=== PATIENT | male | born 1960 | race Caucasian/White ===

== ENCOUNTER 2016-12-26 15:41 | Outpatient (CLI) | payer MEDICARE ==
[2016-12-26 17:52] LABS: #Basophils 0.1 thou/uL (0.0-0.2); #Eosinphils 0.1 thou/uL (0.0-0.7); #Monocytes 0.5 thou/uL (0.11-0.59); #Neutrophils 3.6 thou/uL (1.40-6.50); %Basophils 1.4 % (0.0-1.0); %Eosinophils 1.6 % (0.0-10.0); %Monocytes 7.5 % (0.0-10.0); Hematocrit 40.4 % (42.0-52.0); Mean Platelet Volume 6.9 fL (7.4-10.4); Red Blood Cell (RBC) Count 4.29 mill/uL (4.70-6.10); White Blood Cell (WBC) Count 6.3 thou/uL (4.8-10.8)
[2016-12-26 18:04] LABS: ALT (SGPT) 44 U/L (0-55); AST (SGOT) 43 U/L (5-34); Alkaline Phosphatase 84 U/L (40-150); Anion Gap 18 mmol/L (10-20); BUN (Urea Nitrogen) 18 mg/dL (8.4-25.7); Bilirubin, Total 0.5 mg/dL (0.2-1.2); Calc. Creatinine Clearance 0 mL/min (70-130); Calcium 9.3 mg/dL (7.8-10.44); Carbon Dioxide 25 mmol/L (22-29); Chloride 95 mmol/L (98-107); Estimated GFR-MDRD 58; LDL Cholesterol, Calculated 102 mg/dL
[2016-12-26 19:51] LABS: Hemoglobin A1c 12.2 % (4.0-6.0)
== END 2016-12-26 15:42 ==
LOC: HPCALD 15:41
PROVIDERS: ATTEND Physician Assistant
DX: E11.65 Type 2 diabetes mellitus with hyperglycemia (principal)
CPT/HCPCS: 36415; 80053; 80061; 83036; 85025

== ENCOUNTER 2017-02-23 11:04 | Outpatient (CLI) | payer MEDICARE | END 2017-02-23 11:05 | disposition home or self-care (01) | LOC: HPCALD 11:04 | PROVIDERS: ATTEND Physician Assistant | DX: L03.116 Cellulitis of left lower limb (principal) | CPT/HCPCS: 87070; 87205 ==

== ENCOUNTER 2017-02-23 11:34 | Inpatient (IN) | payer MEDICARE ==
[2017-02-23] MEDS ORDERED: Insulin Regular 300 UNITS/3 ML VIAL ONE (11:49)
[2017-02-23 11:56] LABS: #Basophils 0.1 thou/uL (0.0-0.2); #Lymphocytes 1.2 thou/uL (1.20-3.40); #Monocytes 0.5 thou/uL (0.11-0.59); #Neutrophils 5.6 thou/uL (1.40-6.50); %Basophils 0.9 % (0.0-1.0); %Eosinophils 0.3 % (0.0-10.0); %Lymphocytes 16.4 % (21.0-51.0); %Monocytes 6.4 % (0.0-10.0); Hemoglobin 14.7 g/dL (14.0-18.0); Mean Corpuscular HGB CONC 33.2 g/dL (32.0-36.0); Mean Corpuscular Hemoglobin 31.9 pg (27.0-31.0); Mean Corpuscular Volume 95.9 fl (80.0-94.0); Mean Platelet Volume 9.3 fL (7.4-10.4); Platelet Count 167 thou/uL (130-400); RBC Distribution Width 11.5 % (11.5-14.5); Red Blood Cell (RBC) Count 4.62 mill/uL (4.70-6.10); White Blood Cell (WBC) Count 7.3 thou/uL (4.8-10.8)
[2017-02-23 12:12] LABS: ALT (SGPT) 42 U/L (0-55); AST (SGOT) 36 U/L (5-34); Alkaline Phosphatase 92 U/L (40-150); Anion Gap 17 mmol/L (10-20); BUN (Urea Nitrogen) 16 mg/dL (8.4-25.7); Bilirubin, Total 0.5 mg/dL (0.2-1.2); Calc. Creatinine Clearance 0 mL/min (70-130); Calcium 9.5 mg/dL (7.8-10.44); Carbon Dioxide 29 mmol/L (22-29); Chloride 87 mmol/L (98-107); Estimated GFR-MDRD 62; Globulin 3.8 g/dL (2.4-3.5); Potassium 4.2 mmol/L (3.5-5.1); Protein, Total 7.8 g/dL (6.0-8.3); Sodium 129 mmol/L (136-145)
[2017-02-23 12:14] LABS: Glucose 648 mg/dL (70-105)
[2017-02-23] MEDS ORDERED: Acetaminophen 325 MG TAB PO PRN (14:38)
[2017-02-23] MEDS ORDERED: Insulin NPH/Reg Insulin Hm 300 UNITS/3 ML VIAL SC SCH (14:45)
[2017-02-23] MEDS ORDERED: Dextrose 5% in Water 1,000 ML IV PRN (14:55)
[2017-02-23] MEDS ORDERED: Dextrose 50% Abboject 50 ML SYRINGE IVP PRN (14:56)
[2017-02-23] MEDS ORDERED: METRONIDAZOLE IVPB SCH (15:00)
[2017-02-23] MEDS: Sodium Chloride 0.9% 1,000 ML IV SCH ×2 (15:07→23:08)
[2017-02-23] MEDS: HYDROcodone/Acetaminophen 5/325 mg Tablet PO PRN ×2 (15:08→21:58)
[2017-02-23] MEDS: Vancomycin HCl 1 GM in Sodium Chloride 0.9% 250 ML 250 ML IVPB SCH (17:22)
[2017-02-23] MEDS ORDERED: chlordiazePOXIDE HCl 25 MG CAP PO PRN (17:43)
[2017-02-23] MEDS: Enoxaparin Sodium 30 MG/0.3 ML SYRINGE SC SCH (17:58)
[2017-02-23] MEDS: Nicotine 14 MG PATCH TD SCH (17:58)
[2017-02-23] MEDS: Insulin Regular 300 UNITS/3 ML VIAL SC PRN (21:38)
[2017-02-23] MEDS ORDERED: metroNIDAZOLE 500 MG in Premix Bag 1 BAG IVPB SCH (22:00)
--- NOTE | 2017-02-23 22:01 | RAD ---
CHEST TWO VIEWS 02/23/17 Comparison is made with the 02/09/11 study. The heart is normal in size. The mediastinum shows no widening of shift. The trachea is midline. The lungs are currently clear. There is no infiltrate or effusion noted. No acute bony changes were see n. IMPRESSION: No acute thoracic findings. POS: HOME
--- NOTE | 2017-02-23 22:27 | RAD ---
LEFT FEMUR FOUR VIEWS 02/23/17 There has been an amputation at the level of the mid to distal femur. No area of definite bony destr uction was seen. There is currently no plain film finding of osteomyelitis, however, radiographs are relatively late in showing such change. MRI can often be helpful. IMPRESSION: No acute bony findings. POS: HOME
--- NOTE | 2017-02-24 01:38 | HP ---
CHIEF COMPLAINT: Sore on stump. HISTORY OF PRESENT ILLNESS: Mr. Palma is a 57-year-old male with a history of alcohol abuse, tobacco abuse, longstanding diabetes with peripheral vascular disease, status post left AKA, who apparently ran out of his medications due to financial constraints over a month ago, specifically his insulin, and presented in the ambulatory setting today to see his primary care provider, Lorelei Diaz PA-C, with complaint of 1 week history of redness and sore to the left stump. The patient stated he had been unable to wear his prosthesis due to eroding ulceration. He has therefore been ambulating with crutch assist. Mrs. Diaz recommended the patient be evaluated through the emergency department due to hyperglycemia with a glucose of 586 in the clinic setting to bring down his glucose and IV antibiotics for cellulitis of the stump. The area began draining on the day prior to presentation. He has had no fever, chills, nausea, vomiting. He has had a yellowish crusting around the drainage site. Regarding his diabetes, the patient has a glucometer, but has been unable to test his glucose due to a lack of test strips. The patient apparently does not have prescription drug coverage. PAST MEDICAL HISTORY: 1. Medical noncompliance. 2. Type 2 diabetes, insulin-dependent, peripheral vascular disease, alcohol abuse, marijuana abuse. 3. Hepatitis C. PAST SURGICAL HISTORY: 1. Femoral bypass. 2. AKA, left leg. 3. Hernia repair. 4. Tonsillectomy. FAMILY HISTORY: Father is with heart problems. Mother is with diabetes and high cholesterol. The patient has a daughter. ALLERGIES: PENICILLIN. MEDICATIONS: Previously reported Humulin 70/30, 15 units b.i.d.; Levemir 20 units at bedtime and lisinopril 10 mg q. day, but has been off of medication for at least 4 weeks. SOCIAL HISTORY: The patient drinks one beer per day. Smokes 1 pack of tobacco per day. Smokes marijuana. REVIEW OF SYSTEMS: CONSTITUTIONAL: The patient denies fever, chills, fatigue, weakness. HEENT: Denies vision changes, sore throat, ear pain, runny nose, cough. CARDIOVASCULAR: The patient denies chest pain, palpitations, syncope. RESPIRATORY: The patient denies cough, shortness of breath, hemoptysis. GASTROINTESTINAL: The patient denies nausea, vomiting, diarrhea, constipation, blood in the stool. MUSCULOSKELETAL: The patient denies joint swelling and joint pain, but has had drainage from the left stump as per HPI. GENITOURINARY: Denies dysuria or gross hematuria. HEMATOLOGIC: Denies bleeding or bruising. PSYCHIATRIC: The patient denies history of alcohol withdrawal, depression or anxiety. PHYSICAL EXAMINATION: VITAL SIGNS: Blood pressure 149/89, heart rate 104, respirations 18, temperature 97.9, pain 8/10, 97% on room air. At my exam, temperature 97.7, pulse 84, respirations 20, O2 sat 98% on room air, blood pressure 169/80. GENERAL: Thin male in no acute distress. Alert and oriented x3. HEENT: Pupils are equally round and reactive to light and accommodation. Extraocular muscles are intact. Nares are patent without discharge. Tongue protrudes in midline. NECK: Supple, without lymphadenopathy, thyromegaly or JVD. CARDIOVASCULAR: Regular rate and rhythm, normal S1, S2. No murmurs, clicks, rubs, or gallops. LUNGS: Clear to auscultation with good air entry bilaterally. No wheezing or crackles. No increased work of breathing. GASTROINTESTINAL: Positive bowel sounds in all four quadrants, soft, nontender , nondistended, no masses, guarding, or rebound tenderness. EXTREMITIES: No cyanosis, clubbing or edema to the right lower extremity, the left lower extremity is without edema. There is a left [id number] amputation that is erythematous at the distal aspect with a mild amount of warmth and a 2 x 1 cm shallow and yellow ulceration with serous drainage at the distal aspect of the stump, which was cultured at the clinic with approximately 3 cm of surrounding erythema in all directions, that is tender to palpation. The tenderness extends 6 cm up the thigh. No induration. Capillary refill less than 2 seconds at the stump and at the right lower extremity. NEUROLOGIC: Cranial nerves II through XII grossly intact. No focal deficits. SKIN: Several abrasions, one is 1 x 4 cm to the left forearm with erythema around the shallow scab, but denies tenderness. No other rash identified. LABORATORY DATA: White count 7.3, hemoglobin 14.7, hematocrit 44.3, platelets 167, 76% neutrophils, 16% lymphocytes. Sodium 129, potassium 4.2, chloride 87, bicarbonate 29, BUN 16, creatinine 1.2, glucose 648, subsequently down to 355 at 1707 this afternoon. Lactic acid 1.6, calcium 9.5, AST 36, ALT 42, albumin 4.0, wound culture from the clinic pending, blood cultures x2 in the ER pending. IMAGING: Femur x-ray shows no evidence for osteomyelitis. Chest x-ray is pending. ASSESSMENT AND PLAN: 1. Cellulitis, left stump in the context of uncontrolled diabetes. It is recommended admission for IV antibiotics to cover both Staph and Enterobacter. The patient is PENICILLIN allergic. The patient was started on Levaquin, metronidazole and vancomycin in the ER. We will discontinue the metronidazole at this time and continue Levaquin and vancomycin. We will monitor vancomycin troughs. We will follow blood cultures x2. We will consult Wound Care. We will repeat a CBC in the a.m. 2. Insulin-dependent diabetes with hyperglycemia. The patient was given a couple liters of normal saline in the ER as well as insulin IV and his glucose has come down some. The patient has been placed on sliding scale. He was given a dose of 70/30 upon arrival to the floor of 20 units. We will continue him on sliding scale overnight and order scheduled insulin in the morning based on his values at that time. We will consult case management to help the patient with his prescription coverage. We will perform Accu-Cheks q.a.c. and at bedtime. Place patient on a diabetic diet. 3. Hypertension. The patient will be placed back on low dose lisinopril. We will monitor while hospitalized. 4. Hepatitis C. The patient with minimal LFT elevation at this time. 5. Hyponatremia. This is partially pseudohyponatremia due to hyperglycemia. Also, suspect this may be secondary to some underlying alcoholism with beer drinking as well. We will recheck in the morning. 6. Alcohol abuse. The patient will be given Librium p.r.n. for alcohol withdrawal. We will monitor closely for symptoms of withdrawal. 7. Tobacco abuse. The patient will be given nicotine patch while hospitalized. Smoking cessation will be counseled. 8. Marijuana abuse. The patient will be counseled during his hospitalization. 9. Peripheral vascular disease. The patient will be started on Aspirin 81 mg daily. 10. Prophylaxis. The patient will be given Lovenox 30 mg subcu daily for deep venous thrombosis prophylaxis. We will order PPI. MTDD
[2017-02-24] MEDS: Sodium Chloride 0.9% 1,000 ML IV SCH ×2 (02:40→07:00)
[2017-02-24] MEDS: Vancomycin HCl 1 GM in Sodium Chloride 0.9% 250 ML 250 ML IVPB SCH ×2 (03:48→16:50)
[2017-02-24 05:11] LABS: Anion Gap 12 mmol/L (10-20); BUN (Urea Nitrogen) 8 mg/dL (8.4-25.7); Calc. Creatinine Clearance 94 mL/min (70-130); Calcium 8.4 mg/dL (7.8-10.44); Carbon Dioxide 25 mmol/L (22-29); Chloride 105 mmol/L (98-107); Estimated GFR-MDRD Greater than 90; Glucose 286 mg/dL (70-105); Potassium 3.6 mmol/L (3.5-5.1); Sodium 138 mmol/L (136-145)
[2017-02-24 05:21] LABS: Eosinophils 1 % (0-10); Hemoglobin 12.9 g/dL (14.0-18.0); Lymphocytes 35 % (21-51); MDiff Complete? YES; Mean Corpuscular HGB CONC 33.7 g/dL (32.0-36.0); Mean Corpuscular Hemoglobin 32.1 pg (27.0-31.0); Mean Corpuscular Volume 95.3 fl (80.0-94.0); Mean Platelet Volume 8.3 fL (7.4-10.4); Monocytes 6 % (0-10); Neutrophil 57 % (42-75); PLT Morphology Comment Appears Adequate; Platelet Count 137 thou/uL (130-400); RBC Distribution Width 11.5 % (11.5-14.5); RBC Morphology Normal; Red Blood Cell (RBC) Count 4.02 mill/uL (4.70-6.10); White Blood Cell (WBC) Count 6.8 thou/uL (4.8-10.8)
[2017-02-24] MEDS ORDERED: Levemir Flexpen 100 UNITS/ML PEN SC SCH (09:00)
[2017-02-24] MEDS ORDERED: Lisinopril 5 MG TAB PO SCH (09:00)
[2017-02-24] MEDS ORDERED: Insulin NPH/Reg Insulin Hm 300 UNITS/3 ML VIAL SC SCH (09:00)
[2017-02-24] MEDS: Insulin Regular 300 UNITS/3 ML VIAL SC PRN ×4 (09:12→21:04)
[2017-02-24] MEDS: Lisinopril 5 MG TAB PO SCH (09:13)
[2017-02-24] MEDS: Aspirin 81 mg Enteric Coated Tablet PO SCH (09:14)
[2017-02-24] MEDS: HYDROcodone/Acetaminophen 5/325 mg Tablet PO PRN ×2 (12:08→23:40)
[2017-02-24 16:39] LABS: Vancomycin, Trough 9.2 ug/mL
[2017-02-24] MEDS: Enoxaparin Sodium 30 MG/0.3 ML SYRINGE SC SCH (17:24)
[2017-02-24] MEDS: Nicotine 14 MG PATCH TD SCH (17:25)
[2017-02-25] MEDS: Vancomycin HCl 1 GM in Sodium Chloride 0.9% 250 ML 250 ML IVPB SCH ×2 (03:54→16:00)
[2017-02-25 05:24] LABS: #Basophils 0.1 thou/uL (0.0-0.2); #Eosinphils 0.2 thou/uL (0.0-0.7); #Lymphocytes 2.8 thou/uL (1.20-3.40); #Monocytes 0.6 thou/uL (0.11-0.59); %Basophils 1.3 % (0.0-1.0); %Lymphocytes 37.3 % (21.0-51.0); %Monocytes 7.2 % (0.0-10.0); %Neutrophils 52.3 % (42.0-75.0); Hemoglobin 13.4 g/dL (14.0-18.0); Mean Corpuscular HGB CONC 34.4 g/dL (32.0-36.0); Mean Corpuscular Hemoglobin 32.8 pg (27.0-31.0); Mean Corpuscular Volume 95.3 fl (80.0-94.0); Mean Platelet Volume 7.9 fL (7.4-10.4); Platelet Count 153 thou/uL (130-400); RBC Distribution Width 11.5 % (11.5-14.5); White Blood Cell (WBC) Count 7.6 thou/uL (4.8-10.8)
[2017-02-25 05:35] LABS: ALT (SGPT) 38 U/L (0-55); AST (SGOT) 32 U/L (5-34); Albumin 3.2 g/dL (3.5-5.0); Alkaline Phosphatase 69 U/L (40-150); Anion Gap 13 mmol/L (10-20); BUN (Urea Nitrogen) 9 mg/dL (8.4-25.7); Bilirubin, Total 0.3 mg/dL (0.2-1.2); Calc. Creatinine Clearance 98 mL/min (70-130); Calcium 8.5 mg/dL (7.8-10.44); Carbon Dioxide 24 mmol/L (22-29); Chloride 103 mmol/L (98-107); Estimated GFR-MDRD Greater than 90; Globulin 2.9 g/dL (2.4-3.5); Glucose 183 mg/dL (70-105); Potassium 3.6 mmol/L (3.5-5.1); Protein, Total 6.1 g/dL (6.0-8.3); Sodium 136 mmol/L (136-145)
[2017-02-25] MEDS ORDERED: Levemir Flexpen 100 UNITS/ML PEN SC SCH (07:50)
[2017-02-25] MEDS: Aspirin 81 mg Enteric Coated Tablet PO SCH (08:37)
[2017-02-25] MEDS: Lisinopril 5 MG TAB PO SCH (08:42)
[2017-02-25] MEDS: Insulin Regular 300 UNITS/3 ML VIAL SC PRN ×4 (08:51→21:27)
[2017-02-25] MEDS: Vancomycin HCl 750 MG in Sodium Chloride 0.9% 250 ML 250 ML IVPB SCH (16:41)
[2017-02-25] MEDS: Enoxaparin Sodium 30 MG/0.3 ML SYRINGE SC SCH (18:17)
[2017-02-25] MEDS: Vancomycin HCl 500 MG in Sodium Chloride 0.9% 100 ML IVPB SCH (18:17)
[2017-02-25] MEDS: Nicotine 14 MG PATCH TD SCH (18:18)
[2017-02-25] MEDS: HYDROcodone/Acetaminophen 5/325 mg Tablet PO PRN (20:04)
[2017-02-26] MEDS: Vancomycin HCl 750 MG in Sodium Chloride 0.9% 250 ML 250 ML IVPB SCH (04:52)
[2017-02-26] MEDS: HYDROcodone/Acetaminophen 5/325 mg Tablet PO PRN ×3 (05:32→20:50)
[2017-02-26] MEDS: Vancomycin HCl 500 MG in Sodium Chloride 0.9% 100 ML IVPB SCH (06:34)
[2017-02-26] MEDS: Lisinopril 5 MG TAB PO SCH (08:37)
[2017-02-26] MEDS ORDERED: Levemir Flexpen 100 UNITS/ML PEN SC SCH ×2 (08:37→09:00)
[2017-02-26] MEDS: Aspirin 81 mg Enteric Coated Tablet PO SCH (08:39)
[2017-02-26] MEDS: Insulin Regular 300 UNITS/3 ML VIAL SC PRN ×4 (08:40→21:23)
[2017-02-26] MEDS: Enoxaparin Sodium 30 MG/0.3 ML SYRINGE SC SCH (18:13)
[2017-02-26] MEDS: Nicotine 14 MG PATCH TD SCH (18:14)
[2017-02-26] MEDS: Doxycycline Hyclate 100 MG TAB PO SCH (20:50)
[2017-02-27] MEDS: HYDROcodone/Acetaminophen 5/325 mg Tablet PO PRN (05:41)
[2017-02-27 05:53] VITALS: BMI 17.4
[2017-02-27 06:32] VITALS: TEMP 98.6
[2017-02-27] MEDS ORDERED: Levemir Flexpen 100 UNITS/ML PEN SC SCH (08:41)
[2017-02-27] MEDS: Doxycycline Hyclate 100 MG TAB PO SCH (09:28)
[2017-02-27] MEDS: Aspirin 81 mg Enteric Coated Tablet PO SCH (09:28)
[2017-02-27] MEDS: Lisinopril 5 MG TAB PO SCH (09:29)
[2017-02-27] MEDS: Insulin Regular 300 UNITS/3 ML VIAL SC PRN ×2 (09:37→13:56)
[2017-02-27] MEDS ORDERED: chlordiazePOXIDE HCl 25 MG CAP PO PRN (10:43)
[2017-02-27 12:14] VITALS: BP 149/79
--- NOTE | 2017-02-27 22:59 | DIS ---
DATE OF ADMISSION: 02/23/2017 DATE OF DISCHARGE: 02/27/2017 ADMISSION DIAGNOSES: 1. Cellulitis of the left [id number] amputation stump. 2. Uncontrolled insulin-dependent diabetes. 3. Medication noncompliance. 4. Hypertension. 5. Tobacco abuse. 6. Marijuana use. 7. Alcohol use. 8. Hyponatremia secondary to hyperglycemia. DISCHARGE DIAGNOSES: 1. Cellulitis of the left [id number] amputation stump, MRSA. 2. Uncontrolled insulin-dependent diabetes with HgbA1c 13. 3. Medication noncompliance. 4. Hypertension. 5. Tobacco abuse. 6. Marijuana use. 7. Alcohol use. 8. Hyponatremia secondary to hyperglycemia. ATTENDING PHYSICIAN: Dr. Sandy Choi, covering for the patient's primary care provider Lorelei Diaz PA-C, with [facility] with Dr. Trae Graf covering from 02/24/2017 through 02/26/2017. PROCEDURES: 1. Wound culture performed date of admission grew out methicillin-resistant Staphylococcus aureus. 2. An x-ray of the femur showing no acute findings or evidence of osteomyelitis from the date of admission. 3. Chest x-ray from the date of admission showing no acute thoracic findings. 4. White count on admission 7.3. 5. Sodium on admission 129 and subsequently 136 with correction of hyperglycemia and IV fluids. 6. Hemoglobin A1c from the date of admission 13. 7. BUN and creatinine date of admission are 16 and 1.2 with improvement to 9 and 0.8 with correction of hyperglycemia and dehydration. 8. Vancomycin troughs monitored throughout hospital admission in range. 9. Blood cultures x2 negative at 48 hours. HISTORY AND PHYSICAL EXAMINATION: Please see dictated report from the date of admission. HOSPITAL COURSE: Mr. Palma is a 57-year-old male, who had been without his medication regimen for over 1 month, who presented in the ambulatory setting with complaint of a sore to the AKA stump on the left lower extremity with ascending erythema and discharge. In the clinic setting, he had a glucose that was greater than 500. The patient was recommended triage through the emergency department and was admitted to the floor after a couple units of normal saline and IV insulin for stabilization of his glucose values and further workup of his cellulitis. He was placed on Levaquin and vancomycin empirically and blood cultures performed showed no growth at 48 hours. Wound culture from the clinic setting performed the date of admission grew out MRSA that was sensitive to doxycycline, gentamicin, linezolid, rifampin, tetracycline and resistant to all other agents. The patient's Levaquin was discontinued on the day prior to his discharge and he was started on oral doxycycline. We monitored this area for greater than 24 hours with no increase in the erythema after the conversion to oral antibiotics. Subsequently, during his hospital stay, the patient's erythema resolved. Wound care evaluated the patient and performed dressing changes. The area was debrided and essentially a 1 cm ulceration is remaining for which we have ordered outpatient wound care to evaluate and treat 3 times a week. The patient will also follow up closely with his health care provider, Cindy Lorelei Diaz at the [facility] in approximately 7 days. Regarding his diabetes, the patient was initially given IV insulin, which brought his regimen down and administered a dose of his home 70/30 on the date of his admission. However, it felt to be more prudent to put him on a basal and short-acting insulin, therefore, Levemir was started and titrated to 33 units on the date of discharge with improvement of his glucose values initially from greater than 600 down into the upper 100s. He was placed on a sliding scale with regular insulin and was requiring between 14 to 16 units of short- acting insulin on the sliding scale. Therefore, he was started on short-acting insulin of NovoLog 5 units prior to meals at the time of his discharge. He has been arranged to get his medications through our [facility] at [place]. As well, we have ordered glucometer and testing supplies. He will be advised to continue his current dose of Levemir and to hold his premeal short-acting insulin if his glucose values are less than 100. He will continue a diabetic diet and we have reemphasized the importance of medication compliance in order to heal his wound and avoid progression to osteomyelitis. Regarding his hypertension, the patient was initially reported to have 10 mg of lisinopril home dose, which he had been out of for greater than 1 month. The patient was restarted on 5 mg of lisinopril initially and as his renal function improved and his hypertension continued to be out of range, so this was titrated to amlodipine 5 mg daily and Lisinopril 20 mg daily. Further titration and monitoring in the outpatient setting should be performed as needed. On the date of discharge, his blood pressure is 149/79. For cardiovascular disease prophylaxis in the context of diabetes and history of peripheral vascular disease, aspirin 81 mg daily was added. DISPOSITION: Discharged to home with orders for wound care 3 times per week at [facility] and follow up with his primary care provider, Lorelei Diaz PA-C, in 7 days. PRESCRIPTIONS: 1. Aspirin 81 mg p.o. q. day. 2. Doxycycline 100 mg p.o. b.i.d. x10 days. 3. NovoLog 5 units subcu t.i.d. 4. Levemir FlexPen 33 units subcu q.a.m. 5. Zestril 20 mg p.o. q. day. 6. Amlodipine besylate 10 mg p.o. q. day. INSTRUCTIONS: The patient is to notify primary care provider for hypoglycemia, increasing redness/pain or discharge from wound or fever. Check glucose at least 3 times a day, once in the morning before you eat with a goal fasting blood glucose of less than 110, and again before meals (lunch and supper). Hold premeal NovoLog insulin if glucose is less than 100. Follow up with his primary care provider within 7 days of discharge. Present regularly to outpatient wound care for monitoring of wound until healed. DANIELLE
[2017-02-28] MEDS ORDERED: Levemir Flexpen 100 UNITS/ML PEN SC SCH (09:00)
== END 2017-02-27 14:22 | disposition home or self-care (01) | DRG 565 ==
LOC: BURERS 11:34 → BURMED 13:03
PROVIDERS: ADMIT Family Medicine; ATTEND Family Medicine
DX: T87.44 Infection of amputation stump, left lower extremity (principal); E87.1 Hypo-osmolality and hyponatremia; E11.51 Type 2 diabetes mellitus with diabetic peripheral angiopathy without gangrene; E11.65 Type 2 diabetes mellitus with hyperglycemia; L03.116 Cellulitis of left lower limb; Y83.5 Amputation of limb(s) as the cause of abnormal reaction of the patient, or of later complication, without mention of misadventure at the time of the procedure; Z91.14 Patient's other noncompliance with medication regimen; F17.210 Nicotine dependence, cigarettes, uncomplicated; F12.10 Cannabis abuse, uncomplicated; B95.62 Methicillin resistant Staphylococcus aureus infection as the cause of diseases classified elsewhere
CPT/HCPCS: 36415; 36416; 71020; 80048; 80053; 80202; 83036; 83605; 85025; 87040; 87070; 87077; 87186; 87205; 94760; 96365; 96366; 96375; 97602; A4216; G8990-GP-CH; G8991-GP-CH; J1650; J1815; J1956; J3370; J7050

== ENCOUNTER 2017-05-26 09:11 | Outpatient (CLI) | payer MEDICARE, MEDICAID ==
[2017-05-26 11:11] LABS: #Basophils 0.1 thou/uL (0.0-0.2); #Eosinphils 0.2 thou/uL (0.0-0.7); #Lymphocytes 1.8 thou/uL (1.20-3.40); #Monocytes 0.5 thou/uL (0.11-0.59); #Neutrophils 3.5 thou/uL (1.40-6.50); %Basophils 1.7 % (0.0-1.0); %Eosinophils 2.8 % (0.0-10.0); %Lymphocytes 29.8 % (21.0-51.0); %Neutrophils 57.7 % (42.0-75.0); Hemoglobin 13.1 g/dL (14.0-18.0); Mean Corpuscular HGB CONC 34.5 g/dL (32.0-36.0); Mean Corpuscular Hemoglobin 33.1 pg (27.0-31.0); Mean Corpuscular Volume 95.9 fl (80.0-94.0); Mean Platelet Volume 7.2 fL (7.4-10.4); Platelet Count 172 thou/uL (130-400); RBC Distribution Width 12.1 % (11.5-14.5); Red Blood Cell (RBC) Count 3.96 mill/uL (4.70-6.10); White Blood Cell (WBC) Count 6.1 thou/uL (4.8-10.8)
[2017-05-26 11:24] LABS: Hemoglobin A1c 8.1 % (4.0-6.0)
[2017-05-26 17:16] LABS: Iron 194 ug/dL (65-175); Iron Binding Capacity, Total 256 mcg/dL (261-462)
== END 2017-05-26 09:12 | disposition home or self-care (01) ==
LOC: HPCALD 09:11
PROVIDERS: ATTEND Physician Assistant
DX: E11.65 Type 2 diabetes mellitus with hyperglycemia (principal); R79.89 Other specified abnormal findings of blood chemistry
CPT/HCPCS: 36415; 83036; 83540; 83550; 85025

== ENCOUNTER 2017-06-05 11:27 | Outpatient (CLI) | payer MEDICARE, MEDICAID ==
[2017-06-05 12:54] LABS: ALT (SGPT) 21 U/L (8-55); AST (SGOT) 21 U/L (5-34); Albumin 3.8 g/dL (3.5-5.0); Alkaline Phosphatase 91 U/L (40-150); Bilirubin, Direct 0.2 mg/dL (0.1-0.3); Bilirubin, Total 0.3 mg/dL (0.2-1.2); Protein, Total 7.3 g/dL (6.0-8.3)
[2017-06-05 19:05] LABS: Folate (Folic Acid) 11.5 ng/mL (7.0-31.4)
== END 2017-06-05 11:28 ==
LOC: HPCALD 11:27
PROVIDERS: ATTEND Physician Assistant
DX: D64.9 Anemia, unspecified (principal); R79.0 Abnormal level of blood mineral
CPT/HCPCS: 36415; 80076; 82607; 82728; 82746; 83540; 83550

== ENCOUNTER 2017-08-14 10:37 | Emergency (ER) | payer MEDICARE, MEDICAID | END 2017-08-14 11:18 | disposition home or self-care (01) | LOC: BURERS 10:37 | DX: L03.113 Cellulitis of right upper limb (principal); E11.9 Type 2 diabetes mellitus without complications; F17.210 Nicotine dependence, cigarettes, uncomplicated | CPT/HCPCS: 99283 ==

== ENCOUNTER 2017-08-21 14:39 | Outpatient (CLI) | payer MEDICARE, MEDICAID ==
--- NOTE | 2017-08-21 20:51 | RAD ---
RIGHT ELBOW TWO VIEWS: Date: 08-21-17 FINDINGS: No fracture or joint effusion was seen. A faint calcification along side the medial epicondyle of th e distal humerus is probable a tendinous calcification from prior injury. IMPRESSION: No acute bone finding. POS: HOME
== END 2017-08-21 14:40 | disposition home or self-care (01) ==
LOC: BURRAD 14:39
PROVIDERS: ATTEND Physician Assistant
DX: L03.113 Cellulitis of right upper limb (principal)